=== PATIENT | female | born 1980 | race Caucasian/White ===

== ENCOUNTER 2018-07-13 20:22 | Emergency (ER) | payer MEDICARE, OTHER ==
[~2018-07-13] VITALS: Wt 78.0 kg
[~2018-07-13 20:22] MED LIST: DENIES MEDS
[2018-07-13] MEDS ORDERED: OLANZAPINE (ODT) 5 MG TAB PO STA (21:27)
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
[2018-07-13] MEDS: DIVALPROEX (EC) 500 MG TAB PO SCH (22:27)
--- NOTE | 2018-07-13 23:29 | ERD ---
ER Documentation Chief Complaint Chief Complaint PT STATES SHE LEFT PSYCH FACILITY NEEDING TREATMENT FOR FOOD POISONING HPI Patient is a 38-year-old female with bipolar disease and schizoaffective disorder says "I have food poisoning". She reports suicidal and homicidal ideation. She says that she "plans to let myself ". She also says to me that she "smokes eel". These note the history and physical exam is limited secondary to the patient's flight of ideas. Upon review of old medical records this is the patient's seventh visit to the ER since 2008. Review of the emergency department information exchange system shows visits to 2 separate emergency departments for a total of 2 visits over the past 1 year. She says t hat her psychiatrist is Dr. Gracia. ROS All systems reviewed and are negative except as per history of present illness. Medications Home Meds Reported Medications [Denies Meds] No Conflict Check 05/21/10 Allergies Allergies: Coded Allergies: No Known Drug Allergy (Verified Allergy, Mild, 12/13/12) PMhx/Soc History of Surgery: Yes (foot surgery) Anesthesia Reaction: No Hx Neurological Disorder: No Hx Respiratory Disorders: No Hx Cardiac Disorders: No Hx Psychiatric Problems: Yes (BIPOLAR) Hx Miscellaneous Medical Probl: No Hx Alcohol Use: Yes Hx Substance Use: Yes (SMOKES EEL) Hx Tobacco Use: Yes Smoking Status: Current every day smoker FmHx Family History: No diabetes Physical Exam Vitals Vital Signs Date Temp Pulse Resp B/P (MAP) Pulse Ox O2 O2 Flow FiO2 Time Delivery Rate 07/13/18 97.2 78 18 121/63 100 21:01 (82) Physical Exam Const: No acute distress Head: Atraumatic Eyes: Normal Conjunctiva ENT: Normal External Ears, Nose and Mouth. Neck: Full range of motion. No meningismus. Resp: Clear to auscultation bilaterally Cardio: Regular rate and rhythm, no murmurs Abd: Soft, non tender, non distended. Normal bowel sounds Skin: No petechiae or rashes Back: No midline or flank tenderness Ext: No cyanosis, or edema Neur: Awake and alert Psych: Positive for suicide and homicide Result Diagram: 07/13/18214207/13/182142 Results 24 hrs Laboratory Tests Test 07/13/18 21:43 07/13/18 21:53 07/13/18 22:05 White Blood Count 7.5 10^3/ul Red Blood Count 4.59 10^6/ul Hemoglobin 13.8 g/dl Hematocrit 42.6 % Mean Corpuscular Volume 92.8 fl Mean Corpuscular Hemoglobin 30.1 pg Mean Corpuscular 32.4 g/dl Hemoglobin Concent Red Cell Distribution Width 13.1 % Platelet Count 227 10^3/UL Mean Platelet Volume 10.3 fl Immature Granulocytes % 0.300 % Neutrophils % 64.5 % Lymphocytes % 27.4 % Monocytes % 6.3 % Eosinophils % 1.2 % Basophils % 0.3 % Nucleated Red Blood Cells % 0.0 /100WBC Immature Granulocytes # 0.020 10^3/ul Neutrophils # 4.8 10^3/ul Lymphocytes # 2.1 10^3/ul Monocytes # 0.5 10^3/ul Eosinophils # 0.1 10^3/ul Basophils # 0.0 10^3/ul Nucleated Red Blood Cells # 0.0 10^3/ul Urine Color YELLOW Urine Clarity SLIGHTLY CLOUDY Urine pH 5.0 Urine Specific [place] 1.026 Urine Ketones TRACE mg/dL Urine Nitrite NEGATIVE mg/dL Urine Bilirubin NEGATIVE mg/dL Urine Urobilinogen 1+ mg/dL Urine Leukocyte Esterase NEGATIVE [place]/ul Urine Microscopic RBC 13 /HPF Urine Microscopic WBC 5 /HPF Urine Squamous Epithelial Cells FEW /HPF Urine Bacteria FEW /HPF Urine Mucus MANY /HPF Urine Hemoglobin 1+ mg/dL Urine Glucose NEGATIVE mg/dL Urine Total Protein NEGATIVE mg/dl Sodium Level 142 mmol/L Potassium Level 4.1 mmol/L Chloride Level 107 mmol/L Carbon Dioxide Level 25 mmol/L Anion Gap 10 Blood Urea Nitrogen 17 mg/dl Creatinine 0.67 mg/dl Est Glomerular Filtrat > 60 mL/min Rate mL/min Glucose Level 97 mg/dl Calcium Level 9.8 mg/dl Total Bilirubin 0.5 mg/dl Direct Bilirubin 0.00 mg/dl Indirect Bilirubin 0.5 mg/dl Aspartate Amino Transf (AST/SGOT) 20 IU/L Alanine 15 IU/L Aminotransferase (ALT/SGPT) Alkaline Phosphatase 54 IU/L Total Protein 7.3 g/dl Albumin 4.1 g/dl Globulin 3.20 g/dl Albumin/Globulin Ratio 1.28 Salicylates Level < 1.0 mg/dl Urine Opiates Screen Negative Acetaminophen Level < 10.0 ug/ml Urine Barbiturates Negative Urine Amphetamines Screen POSITIVE Urine Benzodiazepines Screen Negative Urine Cocaine Screen Negative Urine Cannabinoids Positive Ethyl Alcohol Level < 10.0 mg/dl POC Beta HCG, Qualitative NEGATIVE Valproic Acid (Depakene) Level 58 ug/ml Current Medications Medications Dose Sig/Moraima Start Time Status Last (Trade) Ordered Route PRN Stop Time Admin Dose Reason Admin Olanzapine 5 mg ONCE STAT 07/13/18 DC 07/13/18 (Zyprexa PO 21:27 22:27 Zydis) 07/13/18 21:30 Olanzapine 5 mg BID ODT 07/14/18 (Zyprexa 09:00 Zydis) Divalproex 500 mg BID PO 07/13/18 07/13/18 Sodium 22:30 22:27 (Depakote) Procedures/MDM Smoking Cessation Therapy: Pt. was lectured for greater than 3 minutes on the health risks of continued smoking and the benefits of cessation. Patient is a 38-year-old female who presents with acute psychosis and suicidal ideation. She has been recommended a 5150 hold by psychiatry. She is now medically clear for psychiatric transfer. She was given Zyprexa and Depakote and these medications have been ordered BID. We are attempting to find an accepting facility at this time. The patient will be signed out to the oncoming physician. Departure Diagnosis: Primary Impression: Psychosis Psychosis type: unspecified psychosis type Qualified Codes: F29 - Unspecified psychosis not due to a substance or known physiological condition Additional Impression: Suicidal ideation Condition: MITCHELL Arias MD July 13, 2018 23:29
[2018-07-14] MEDS ORDERED: OLANZAPINE (ODT) 5 MG TAB ODT SCH (09:00)
[2018-07-14] MEDS: DIVALPROEX (EC) 500 MG TAB PO SCH (09:49)
[2018-07-14 15:20] VITALS: BP 97/54; PULSE 64; RESP 18
== END 2018-07-14 15:45 ==
LOC: E/R 20:22
DX: F29 Unspecified psychosis not due to a substance or known physiological condition (principal); R40.2142 Coma scale, eyes open, spontaneous, at arrival to emergency department; R40.2362 Coma scale, best motor response, obeys commands, at arrival to emergency department; R40.2252 Coma scale, best verbal response, oriented, at arrival to emergency department; F17.210 Nicotine dependence, cigarettes, uncomplicated
CPT/HCPCS: 36415; 80053; 80164; 80307; 81001; 81025; 85025